=== PATIENT | male | born 1995 | race Caucasian/White ===

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

== ENCOUNTER 2017-01-26 13:02 | Emergency (ER) | payer OTHER ==
[2017-01-26] MEDS ORDERED: NS 0.9% 1000 ML* 2,000 ML IV ONE (14:18)
[2017-01-26 14:37] LABS: Hematocrit 39 % (42-52); Hemoglobin 13.3 g/dl (14.0-18.0); Mean Corpuscular HGB Conc 34 g/dl (31-36); Mean Corpuscular Hemoglobin 30 pg (27-31); Mean Corpuscular Volume 89 fL (80-94); Mean Platelet Volume 8 um3 (7.4-10.4); Red Cell Distribution Width 13 % (10.5-15); White Blood Count 2.9 10^3/ul (3.5-10.8)
[2017-01-26 14:38] LABS: Add Diff/Slide Review? Slide Review Added; Comments Flag Yes
[2017-01-26 14:51] LABS: Albumin 4.3 g/dL (3.2-5.2); C Reactive Protein 15.87 mg/L (< 5.00); Calcium 9.7 mg/dL (8.6-10.3); EGFR African American 122.5 (>60); EGFR Non-African American 95.3 (>60); Globulin 2.7 g/dL (2-4); Total Bilirubin 0.4 mg/dL (0.2-1.0)
[2017-01-26 15:04] LABS: Urine Bilirubin Negative (Negative); Urine Glucose Negative (Negative); Urine Nitrite Negative (Negative)
--- NOTE | 2017-01-26 15:35 | RAD ---
INDICATION: Left flank pain COMPARISON: Right renal sonogram May 18, 2016 TECHNIQUE: Noncontrast axial source images were acquired from the level hemidiaphragms to the symphysis pubis as part of CT imaging for renal stone. Lung bases: The lung bases are clear. Liver: The liver is normal in size. Noncontrast imaging shows no evidence of a hepatic mass or ductal dilatation. Gallbladder: There are no calcified gallstones. There is no evidence of wall thickening or pericholecystic fluid.. Spleen: There is moderate splenomegaly. Spleen measures 17 cm in greatest dimension. There is no focal mass on noncontrast evaluation. Pancreas: Noncontrast imaging shows no pancreatic mass or ductal dilitation. Adrenal glands: No masses are identified. Kidneys/Bladder: There are multiple nonobstructive right renal calculi. These calculi are in the 2 to 3 mm range. There are no left-sided renal calculi. No ureteral calculi are seen. There is no obstruction. The bladder is unremarkable.. Adenopathy: There is no evidence of intraperitoneal or retroperitoneal adenopathy. Evaluation is limited without oral contrast. Fluid collections: There are no free or localized fluid collections. Vessels: The aorta and iliac vessels are normal in caliber. There are no significant atherosclerotic changes. The IVC appears normal Pelvic organs: The uterus and adnexa appear normal GI tract: Evaluation of the bowel is limited without oral contrast. The stomach, small bowel, and lower GI tract appear grossly normal. There are no obstructive findings. The appendix is visualized and appears normal. Soft tissues: No soft tissue abnormalities of the extraperitoneal abdomen or pelvis are identified. Osseous structures: There are no acute osseous findings. IMPRESSION: 1. Moderate splenomegaly. 2. Nonobstructive right-sided renal calculi
[2017-01-26 16:35] LABS: EBV Response YES
[2017-01-26 16:46] LABS: Mono Internal Control QC Line Present
[2017-01-26 16:47] LABS: Manual Entry Verification MER0007
[2017-01-26 17:24] VITALS: BP 134/56
--- NOTE | 2017-01-26 18:50 | ED ---
Jean Camargo Angela, scribed for Charles Gilman MD on 01/26/17 at 1454 . Abdominal Pain/Male - HPI Summary HPI Summary: This pt is a 22 y/o male presenting to [facility] c/o abd pain. Pt had a blood and urine test today at [facility] that showed high WBC count. He currently rates his pain 0/10 in severity. His pain is aggravated with movement and rates it at its worse 5/10 in severity. He has never had a CT scan before. Pt denies dysuria, cough, sore throat, neck pain, headache. PMHx: kidney stones (right kidney) with surgical intervention. His last kidney stone was in April. - History of Current Complaint Chief Complaint: EDAbdPain Stated Complaint: ABD/FLANK PAIN Time Seen by Provider: 01/26/17 14:48 Hx Obtained From: Patient Onset/Duration: Gradual Onset, Still Present Severity Currently: None Pain Intensity: 0 - currently Pain Scale Used: 0-10 Numeric Radiates: No Associated Signs And Symptoms: Negative: Cough, Urinary Symptoms - Allergies/Home Medications Allergies/Adverse Reactions: Allergies Allergy/AdvReac Type Severity Reaction Status Date / Time Amoxicillin Allergy See Comment Verified 01/26/17 14:06 Home Medications: Home Medications NK [No Home Medications Reported] 01/26/17 [History Confirmed 01/26/17] PMH/Surg Hx/FS Hx/Imm Hx Endocrine/Hematology History: Denies: Hx Diabetes History: Reports: Hx Kidney Stones Infectious Disease History: No Infectious Disease History: Denies: Traveled Outside the [place] in Last 30 Days - Family History Known Family History: Negative: Cardiac Disease, Hypertension, Diabetes - Social History Alcohol Use: Occasionally Substance Use Type: Reports: None Smoking Status (MU): Never Smoked Tobacco Review of Systems Negative: Fever, Chills Negative: Sore Throat Negative: Cough Positive: Abdominal Pain Negative: dysuria Negative: Other - neck pain Negative: Headache All Other Systems Reviewed And Are Negative: Yes Physical Exam - Summary Physical Exam Summary: VITAL SIGNS: Reviewed. GENERAL: Patient is a well-developed and nourished male who is lying comfortable in the stretcher. Patient is not in any acute respiratory distress. HEAD AND FACE: Normocephalic and atraumatic. EYES: PERRLA, EOMI x 2, No injected conjunctiva. EARS: Hearing grossly intact. Ear canals and tympanic membranes are WNL. MOUTH: Oropharynx within normal limits. NECK: Supple, trachea is midline, no adenopathy, no JVD. CHEST: Symmetric, no tenderness at palpation LUNGS: Clear to auscultation bilaterally. No wheezing or crackles. CVS: RRR, S1 and S2 present, no murmurs or gallops appreciated. ABDOMEN: Soft, non-tender. No signs of distention. Positive bowel sounds. No rebound no guarding, and no masses palpated. No abdominal bruit or pulsations. EXTREMITIES: FROM in all major joints, no edema, no cyanosis or clubbing. NEURO: Alert and oriented x 3. No acute neurological deficits. Speech is normal. SKIN: Dry and warm Triage Information Reviewed: Yes Vital Signs On Initial Exam: Initial Vitals Temp Pulse Resp BP Pulse Ox 97.7 F 60 18 132/61 99 01/26/17 13:06 01/26/17 13:06 01/26/17 13:06 01/26/17 13:06 01/26/17 13:06 Vital Signs Reviewed: Yes - [place] Coma Scale Coma Scale Total: 15 Diagnostics - Vital Signs Vital Signs Temp Pulse Resp BP Pulse Ox 01/26/17 14:08 59 99 01/26/17 14:06 140/62 01/26/17 13:06 97.7 F 60 18 132/61 99 - Laboratory Lab Results: Lab Results 01/26/17 01/26/17 Range/Units 14:24 14:24 WBC 2.9 L (3.5-10.8) 10^3/ul RBC 4.40 (4.0-5.4) 10^6/ul Hgb 13.3 L (14.0-18.0) g/dl Hct 39 L (42-52) % MCV 89 (80-94) fL MCH 30 (27-31) pg MCHC 34 (31-36) g/dl RDW 13 (10.5-15) % Plt Count 167 (150-450) 10^3/ul MPV 8 (7.4-10.4) um3 Neut % (Auto) 44.8 (38-83) % Lymph % (Auto) 39.5 (25-47) % Mathews % (Auto) 12.8 H (1-9) % Eos % (Auto) 2.2 (0-6) % Baso % (Auto) 0.7 (0-2) % Absolute Neuts (auto) 1.3 L (1.5-7.7) 10^3/ul Absolute Lymphs (auto) 1.2 (1.0-4.8) 10^3/ul Absolute Monos (auto) 0.4 (0-0.8) 10^3/ul Absolute Eos (auto) 0.1 (0-0.6) 10^3/ul Absolute Basos (auto) 0 (0-0.2) 10^3/ul Absolute Nucleated RBC 0 10^3/ul Nucleated RBC % 0.1 INR (Anticoag Therapy) 1.00 (0.89-1.11) APTT 30.4 (26.0-36.3) seconds Result Diagrams: 01/26/17 14:24 01/26/17 14:24 Lab Statement: Any lab studies that have been ordered have been reviewed, and results considered in the medical decision making process. - CT Abdomen/Pelvis CT CT Interpretation: Positive (See Comments) - IMPRESSION: 1. Moderate splenomegaly. 2. Nonobstructive right-sided renal calculi. ED physician has reviewed this radiology report and agrees. CT Interpretation Completed By: Radiologist Re-Evaluation - Re-Evaluation First Eval Re-Evaluation Time: 16:57 Comment: I discussed the CT results with the pt. Abdominal Pain Fem Course/Dx - Course Assessment/Plan: This pt is a 22 y/o male presenting to [facility] c/o abd pain. Pt had a blood and urine test today at [facility] that showed high WBC count. He currently rates his pain 0/10 in severity. His pain is aggravated with movement and rates it at its worse 5/10 in severity. He has never had a CT scan before. Pt denies dysuria, cough, sore throat, neck pain, headache. PMHx: kidney stones (right kidney) with surgical intervention. His last kidney stone was in April. Tests results show WBC of 2.9, hemoglobin of 13.3, hematocrit of 39, CRP 15.87. UA is negative for UTI. Mathews screen is negative. I obtained an abdominal CT because of the pts complaint of left flank pain and history of kidney stones. Abdomen/pelvis CT shows 1. Moderate splenomegaly. 2. Nonobstructive right-sided renal calculi. Test results are negative for obstructing stones. In the ED course, the pt was hydrated and symptoms have resolved. He did not require any pain medications. I discussed the case with Dr. Castro, from hematology, since WBC and H&H is low in a healthy young man. Dr. Castro reports the symptoms are probably secondary to an exposure to a viral infection, which the pt concurs he had one last week and is getting better. Since the pt is feeling better and the symptoms are not significant, the pt will be discharged home with follow up from his PCP. Pt is hemodynamically stable, alert and oriented x3. - Diagnoses Differential Diagnosis/HQI/PQRI: Constipation, Renal Colic, Ureteral Stone, Urinary Tract Infection Provider Diagnoses: Flank pain, Splenomegaly Discharge - Discharge Plan Condition: Stable Disposition: HOME Patient Education Materials: Flank Pain (ED) Referrals: [facility] - Twan BUSTILLO [Primary Care Provider] - Additional Instructions: Please follow up with your primary care provider. RETURN TO THE ED FOR ANY WORSENING SYMPTOMS. The documentation as recorded by the Jean matta Angela accurately reflects the service I personally performed and the decisions made by me, Charles Gilman MD.
[2017-01-28 13:21] LABS: EBV Capsid Ag IgG Ab Positive (Negative); EBV Capsid Ag IgM Ab Equivocal (Negative)
== END 2017-01-26 17:28 | disposition home or self-care (01) ==
LOC: ED 13:02
DX: R10.84 Generalized abdominal pain (principal); R16.1 Splenomegaly, not elsewhere classified
CPT/HCPCS: 36415; 74176; 80053; 81003; 83605; 83690; 85025; 85610; 85730; 86140; 86308; 86664; 86665; 99283

== ENCOUNTER 2018-04-20 18:42 | Emergency (ER) | payer OTHER ==
--- NOTE | 2018-04-20 19:44 | ED ---
Abdominal Pain/Male - HPI Summary HPI Summary: Pt is a 23 y/o M presenting to the ED with a chief complaint of abd pain in RUQ and RLQ rated at a 3 to 5 that is intermittent and worsens upon movement. The pt is sleeping, eating, and having normal bowel movements. 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 He reports dizziness prior to arrival, and a hx of kidney stones but upon checkup 4-5 months ago, they were gone. - History of Current Complaint Chief Complaint: EDAbdPain Stated Complaint: ABD Pain Time Seen by Provider: 04/20/18 19:31 Hx Obtained From: Patient Onset/Duration: Sudden Onset, Lasting Days, Still Present Timing: Intermittent Severity Initially: Moderate Severity Currently: Moderate Pain Intensity: 7 Pain Scale Used: 0-10 Numeric Location: Discrete At: RUQ Radiates: Yes Radiates to: RLQ Character: Sharp, Cramping Aggravating Factor(s): Movement Alleviating Factor(s): Other: - rest Associated Signs And Symptoms: Positive: Dizzy. Negative: Nausea - Allergies/Home Medications Allergies/Adverse Reactions: Allergies Allergy/AdvReac Type Severity Reaction Status Date / Time amoxicillin Allergy See Comment Verified 04/20/18 18:48 PMH/Surg Hx/FS Hx/Imm Hx Previously Healthy: Yes Endocrine/Hematology History: Denies: Hx Diabetes History: Reports: Hx Kidney Stones Infectious Disease History: No Infectious Disease History: Denies: Traveled Outside the [place] in Last 30 Days - Family History Known Family History: Negative: Cardiac Disease, Hypertension, Diabetes - Social History Occupation: Student Alcohol Use: Occasionally Substance Use Type: Reports: None Smoking Status (MU): Never Smoked Tobacco Review of Systems Negative: Fever Positive: Abdominal Pain Neurological: Other - dizziness All Other Systems Reviewed And Are Negative: Yes Physical Exam - Summary Physical Exam Summary: Appearance: Well-appearing, Well-nourished, lying in bed comfortably Skin: Warm, dry, no obvious rash Eyes: sclera anicteric, no conjunctival pallor ENT: mucous membranes moist, pharynx appears normal Neck: Supple, nontender Respiratory: Clear to auscultation, no signs of respiratory distress Cardiovascular: Normal S1, S2. No murmurs. Normal distal pulses in tibial and radial bilaterally. Abdomen: R sided abdominal tenderness with some guarding but no rebound, normal active bowel sounds present Musculoskeletal: Normal, Strength/ROM Intact Neurological: A&Ox3, awake and alert, mentation is normal, speech is fluent and appropriate Psychiatric: affect is normal, does not appear anxious or depressed Triage Information Reviewed: Yes Vital Signs On Initial Exam: Initial Vitals Temp Pulse Resp BP Pulse Ox 98.7 F 61 17 138/81 100 04/20/18 18:44 04/20/18 18:44 04/20/18 18:44 04/20/18 18:44 04/20/18 18:44 Vital Signs Reviewed: Yes Diagnostics - Vital Signs Vital Signs Temp Pulse Resp BP Pulse Ox 04/20/18 18:44 98.7 F 61 17 138/81 100 - Laboratory Result Diagrams: 04/20/18 18:52 04/20/18 18:52 Lab Statement: Any lab studies that have been ordered have been reviewed, and results considered in the medical decision making process. - CT ABD/PELV CT CT Interpretation Completed By: Radiologist Summary of CT Findings: 1. No CT findings to correlate with patient's symptomatology. Specifically no. appendicitis. 2. Nephrolithiasis. ED physician has reviewed this report. - Ultrasound No standard instances Ultrasound Interpretation Completed By: Radiologist Summary of Ultrasound Findings: No visualized appendix with no secondary findings indicative of appendicitis. ED physician has reviewed this report. Abdominal Pain Fem Course/Dx - Course Course Of Treatment: Pt is a 23 y/o M presenting to the ED with a chief complaint of abd pain in the RUQ and RLQ rated at a 3 to 5, intermittent and worse with movement. Pt reports normal appetite, bowel movements, and sleep schedule, as well as dizziness and a hx of kidney stones. An appendix ultrasound shows no visualized appendix with no secondary findings indicative of appendicitis. A CT of the abdomen shows no appendicitis or findings correlated with pts symptoms, but does show nephrolithiasis. The pt will be discharged home, and he is agreeable with this plan. - Diagnoses Differential Diagnosis/HQI/PQRI: Appendicitis, Gall Bladder Disease, Renal Colic , Testicular Torsion Provider Diagnoses: Acute abdominal pain in right lower quadrant Discharge - Sign-Out/Discharge Documenting (check all that apply): Patient Departure - Discharge Plan Condition: Good Disposition: HOME Patient Education Materials: Acute Abdominal Pain (ED) Referrals: [facility] - Twan BUSTILLO [Primary Care Provider] - 2 Days (if not improving) - Billing Disposition and Condition Condition: GOOD Disposition: Home - Attestation Statements Document Initiated by Marianneibe: Yes Documenting Scribe: Elvia Dee Provider For Whom Renetta is Documenting (Include Credential): Luís Patel MD. Scribe Attestation: Elvia Camargo, scribed for Luís Patel MD. on 04/21/18 at 0218. Scribe Documentation Reviewed: Yes Provider Attestation: The documentation as recorded by the Elvia matta accurately reflects the service I personally performed and the decisions made by me, Luís Patel MD. Status of Scribe Document: Viewed
[2018-04-20 19:51] LABS: ABS Basophils 0 10^3/ul (0-0.2); ABS Eosinophils 0.1 10^3/ul (0-0.6); ABS Lymphocytes 1.8 10^3/ul (1.0-4.8); ABS Monocytes 0.4 10^3/ul (0-0.8); ABS Neutrophils 3.6 10^3/ul (1.5-7.7); ABS Nucleated RBC 0 10^3/ul; Eosinophil % 1.8 %; Hematocrit 45 % (42-52); Hemoglobin 15.3 g/dl (14.0-18.0); Mean Corpuscular HGB Conc 34 g/dl (31-36); Mean Corpuscular Hemoglobin 32 pg (27-31); Mean Corpuscular Volume 92 fL (80-94); Mean Platelet Volume 7.9 fL (7.4-10.4); Nucleated Red Blood Cells % 0.1; Platelet Count 189 10^3/ul (150-450); Red Blood Count 4.87 10^6/ul (4.00-5.40); Red Cell Distribution Width 12 % (10.5-15); White Blood Count 5.9 10^3/ul (3.5-10.8)
[2018-04-20 20:10] LABS: ALT 48 U/L (7-52); AST 45 U/L (13-39); Albumin 5.3 g/dL (3.2-5.2); Albumin/Globulin Ratio 1.9 (1-3); Alkaline Phosphatase 54 U/L (34-104); Anion Gap 6 mmol/L (2-11); BUN/Creatinine Ratio 19.5 (8-20); Blood Urea Nitrogen 22 mg/dL (6-24); C Reactive Protein < 1.00 mg/L (<8.01); CO2 Carbon Dioxide 30 mmol/L (22-32); Calcium 10.2 mg/dL (8.6-10.3); Chloride 100 mmol/L (101-111); EGFR Non-African American 81.9 (>60); Globulin 2.8 g/dL (2-4); Glucose 94 mg/dL (70-100); Potassium 3.8 mmol/L (3.5-5.0); Sodium 136 mmol/L (135-145); Total Protein 8.1 g/dL (6.4-8.9)
[2018-04-20] MEDS ORDERED: Iohexol 300* (CONTRAST) 10 ML SDV IV ONE (21:38)
[2018-04-20 21:39] LABS: Urine Appearance Clear; Urine Bilirubin Negative (Negative); Urine Blood Negative (Negative); Urine Color Yellow; Urine Glucose Negative (Negative); Urine Ketones Negative (Negative); Urine Nitrite Negative (Negative); Urine Protein Negative (Negative); Urine Specific Gravity 1.021 (1.010-1.030); Urine Urobilinogen Negative (Negative)
[2018-04-20 22:55] VITALS: BP 141/76
== END 2018-04-20 23:00 | disposition home or self-care (01) ==
LOC: ED 18:42
DX: R10.31 Right lower quadrant pain (principal); R42 Dizziness and giddiness
CPT/HCPCS: 36415; 74177; 76705; 80053; 81003; 83605; 83690; 85025; 86140; 99283; Q9967